=== PATIENT | male | born 1985 | race Caucasian/White ===

== ENCOUNTER 2017-02-01 12:00 | Emergency (ER) | payer MEDICAID | END 2017-02-01 13:21 | disposition home or self-care (01) | LOC: D.ER 12:00 | DX: S01.511A Laceration without foreign body of lip, initial encounter (principal); S02.5XXA Fracture of tooth (traumatic), initial encounter for closed fracture; X58.XXXA Exposure to other specified factors, initial encounter ==

== ENCOUNTER 2018-12-09 14:10 | Emergency (ER) | payer MEDICAID ==
[~2018-12-09] VITALS: Ht 182.9 cm; Wt 75.0 kg
[2018-12-09 14:27] VITALS: Ht 182.9 cm; Wt 75.0 kg
[2018-12-09] MEDS ORDERED: IBUPROFEN800 MG PO (17:16)
[2018-12-09] MEDS ORDERED: CYCLOBENZAPRINE10 MG PO (17:16)
[2018-12-09] MEDS ORDERED: ACETAMINOPHEN500 M1 PO (17:16)
[2018-12-09 18:03] VITALS: BP 110/73
== END 2018-12-09 17:57 | disposition home or self-care (01) ==
LOC: D.ER 14:10
DX: S43.422A Sprain of left rotator cuff capsule, initial encounter (principal)